=== PATIENT | male | born 1970 | race Caucasian/White ===

== ENCOUNTER → 2017-07-22 | Outpatient (CLI) | payer BC ==
--- NOTE | 2017-07-22 14:12 | RADIOLOGY REPORT (SQ) ---
EXAM DESCRIPTION: MRI LUMBAR SPINE WITHOUT COMPLETED DATE/TIME: 07/22/2017 12:32 pm REASON FOR STUDY: OTHER INTERVERTEBRAL DISC DISPLACEMENT, LUMBOSACRAL REGION M51.27 OTHER INTERVERT EBRAL DISC DISPLACEMENT, LUMBOSACRAL R COMPARISON: None. TECHNIQUE: Sagittal and Axial imaging includes T1, T2, STIR and gradient echo sequences. Coronal T2/ HASTE imaging. LIMITATIONS: None. FINDINGS: VISUALIZED UPPER ABDOMEN: Limited evaluation. No acute or suspicious findings suggested. SEGMENTATION: No transitional anatomy. The lowest well-developed disc space is labeled L5-S1. ALIGNMENT: Anatomic. VERTEBRAE: Intact. BONE MARROW: Normal. No marrow replacement or reactive changes. DISC SIGNAL: Decreased height and signal. POSTERIOR ELEMENTS: Generally intact. No pars defect evident. HARDWARE: None in the spine. CORD AND CONUS: Normal in size and signal intensity. Conus at the appropriate level. SOFT TISSUES: No aortic aneurysm seen. No bulky retroperitoneal adenopathy or mass. No paraspinal mas s or fluid. L1-L2: Mild diffuse posterior annular bulge. Mild facet arthropathy. No significant spinal stenosis or exit foraminal stenosis. L2-L3: Mild diffuse posterior annular bulge with small central component. Mild to moderate facet art hropathy. Mild spinal stenosis. No significant exit foraminal stenosis. L3-L4: Right paracentral disc bulge. Mild facet arthropathy. Mild spinal stenosis. No significant exit foraminal stenosis. L4-L5: Mild diffuse posterior bulge. Mild facet arthropathy. Laminectomy changes. No significant s ivania stenosis or exit foraminal stenosis. L5-S1: No significant spinal stenosis or exit foraminal stenosis. LOWER THORACIC: Incompletely imaged. No stenosis seen. SACRUM: Visualized upper sacrum intact. OTHER: No other significant findings. IMPRESSION: MULTILEVEL DEGENERATIVE CHANGES AND SURGICAL CHANGES DESCRIBED. TECHNICAL DOCUMENTATION: JOB ID: [id number] [employer]- All Rights Reserved Reading location - IP/workstation name: [email or web address]
== END ==
LOC: RAD 11:48
PROVIDERS: ATTEND Internal Medicine
DX: M51.27 Other intervertebral disc displacement, lumbosacral region (principal)
CPT/HCPCS: 72148